=== PATIENT | female | born 1965 | race African-American/Black ===

== ENCOUNTER → 2018-06-30 | Outpatient (CLI) | payer MEDICARE, MEDICAID ==
[~2018-06-30] MED LIST: BENZONATATE200 MG PO; CIPRO500 MG PO; CIPROFLOXIN HC2.5 M1 PO; COLACE100 MG PO; LEVAQUIN 500 M500 M4 PO; METAMUCIL PAC1 UDPKT PO; MIRALAX17 GM PO; NORCO 5-325 TA1 EACH PO; OXYCONTIN10 M1 PO; PAXIL10 MG; PEPCID40 MG PO; PRAVACHOL20 MG PO; PRAVASTATIN SOD20 MG PO; PREDNISONE 10 M10 MG PO; PREMARIN VAGI42.5 G1 VAG; TESSALON PERLE100 MG; TESSALON PERLE100 MG PO; VENTOLIN HFA 1818 GM INH; ZOFRAN ODT4 MG PO
== END ==
LOC: M.RAD 06-16 12:37 → M.ULTRA 09:18 → M.RAD 09:20 → M.ULTRA 09:30 → M.RAD 10:20
DX: Z12.31 Encounter for screening mammogram for malignant neoplasm of breast (principal); Z13.820 Encounter for screening for osteoporosis; J44.9 Chronic obstructive pulmonary disease, unspecified; K76.0 Fatty (change of) liver, not elsewhere classified; R16.0 Hepatomegaly, not elsewhere classified; R91.8 Other nonspecific abnormal finding of lung field; Z78.0 Asymptomatic menopausal state; Z90.49 Acquired absence of other specified parts of digestive tract

== ENCOUNTER 2019-03-14 19:50 | Inpatient (IN) | payer MEDICARE ==
[~2019-03-14] VITALS: Ht 160 cm; Wt 108.2 kg
[2019-03-14 20:05] VITALS: BP 142/85
[2019-03-14] MEDS ORDERED: CHROMIUM PIC1000 MCG PO (20:11)
[2019-03-14] MEDS ORDERED: LIPITOR20 MG PO (20:11)
[2019-03-14] MEDS ORDERED: NORVASC 2.5 MG2.5 M1 PO (20:12)
[2019-03-14] MEDS ORDERED: OMEPRAZOLE 20 M20 M1 PO (20:12)
[2019-03-14 20:53] LABS: ABSOLUTE BASOPHILS 0.1 thou/uL (0.0-0.2); ABSOLUTE EOSINOPHILS 0.1 thou/uL (0.0-0.7); ABSOLUTE LYMPHOCYTES 2.2 thou/uL (0.8-5.3); ABSOLUTE MONOCYTES 0.6 thou/uL (0.0-1.2); ABSOLUTE NEUTROPHILS 7.9 thou/uL (1.6-8.1); BASOPHILS 0.6 %; EOSINOPHILS 0.5 %; HEMATOCRIT 45.5 % (37.0-47.0); HEMOGLOBIN 15.4 gm/dL (12.0-15.0); LYMPHOCYTES 20.6 %; MCH 29.2 pg (26.0-34.0); MCHC 33.8 g/dL (28.0-37.0); MCV 86.3 fL (80.0-100.0); MONOCYTES 5.7 %; MPV 8.4 fl. (7.2-11.1); NUCLEATED RBCS 0 /100WBC; PLATELET COUNT* 235 thou/uL (150-400); POLYS 72.6 %; RBC 5.27 mil/uL (4.20-5.00); RDW-CV 19.3 % (10.5-14.5); WBC 10.9 thou/uL (4.0-11.0)
[2019-03-14 20:53] LABS: URINE BLOOD 2+ (Negative); URINE CLARITY CLEAR; URINE COLOR YELLOW; URINE GLUCOSE-RANDOM NEGATIVE (Negative); URINE KETONES TRACE (Negative); URINE LEUKOCYTES-REFLEX NEGATIVE (Negative); URINE NITRITE-REFLEX NEGATIVE (Negative); URINE PROTEIN TRACE (Negative); URINE SPECIFIC GRAVITY >= 1.030 (1.005-1.030); URINE UROBILINOGEN 0.2 E.U./dl (0.2-1.0)
[2019-03-14 20:59] LABS: URINE BILIRUBIN 1+ (Negative)
[2019-03-14 21:00] LABS: ICTOTEST (BILI CONFIRMATORY) Positive (Negative)
[2019-03-14 21:10] LABS: CALCIUM 8.2 mg/dL (8.5-10.1); CREATININE 0.7 mg/dL (0.6-1.3); POTASSIUM 3.3 mmol/L (3.5-5.1)
[2019-03-14 21:14] LABS: ALBUMIN 3.3 g/dL (3.4-5.0); TOTAL BILIRUBIN 0.9 mg/dL (<0.1-1.0); TOTAL PROTEIN 7.1 g/dL (6.4-8.2)
[2019-03-14 21:19] LABS: COARSE GRANULAR CASTS 0-3 Few /LPF (None Seen); SQUAMOUS >10 Many /LPF (0-3)
[2019-03-14 21:21] LABS: CRYSTALS None Seen /LPF (None Seen); URINE RBC 0-2 Rare /HPF (0-2); URINE WBC-REFLEX 0-5 Rare /HPF (0-5)
[2019-03-14] MEDS ORDERED: PHENERGAN 25 MG25 M1 PO (22:47)
[2019-03-14] MEDS ORDERED: OXYCODONE HCL 55 MG PO (22:47)
--- NOTE | 2019-03-15 00:50 | NUR ---
RECEIVED CALL AT NURSE'S STATION FROM MARISA MILLS, WHO STATES SHE IS CO-WORKER WITH PT AND WOULD LIKE TO KNOW WHAT IS GOING ON WITH PATIENT, MARISA INFORMED THAT WE WILL NOT GIVE OUT PATIENT'S INFORMATION, BUT I WILL LET THE PATIENT KNOW THAT MARISA CALLED. PATIENT WAS INFORMED AND STATES "DON'T TELL HER ANYTHING THAT IS GOING ON". PT INFORMED THAT NO INFORMATION WAS GIVEN AND THAT MARISA WAS TOLD THAT PATIENT WOULD BE INFORMED THAT SHE CALLED. PT STATES "OKAY, THAT'S GOOD".
[2019-03-15 01:10] VITALS: BP 130/74
[2019-03-15 02:00] VITALS: BP 141/66
--- NOTE | 2019-03-15 07:35 | NUR ---
RECEIVED REPORT FROM UNDERGROUND BOLTING MACHINE OPERATOR LEANNA AT 0108. PT ARRIVED TO ROOM VIA BED AT 0120. PT AAOX4. ORIENTED TO ROOM AND CALL LIGHT. NURSING ASSESSMENT COMPLETED. NEGATIVE SEPSIS SCREENING. IV FLUIDS INFUSING. PRN PAIN MEDICATION ADMINISTERED X1 THIS SHIFT. HOURLY ROUNDING COMPLETED. CALL LIGHT WITHIN REACH.
[2019-03-15 08:00] VITALS: BP 141/59
[2019-03-15 12:55] LABS: CALCIUM 7.7 mg/dL (8.5-10.1); CREATININE 0.7 mg/dL (0.6-1.3); MAGNESIUM 1.5 mg/dL (1.8-2.4); POTASSIUM 3.4 mmol/L (3.5-5.1)
[2019-03-15 16:00] VITALS: BP 136/60
--- NOTE | 2019-03-15 18:44 | NUR ---
ASSUMED PT CARE AT 0700, PT A&O X4, UP AD STELLA, RA, VSSW, FULL ASSESSMENT CHARTED. PT STATES UNABLE TO EAT, C/O NAUSEA DISPITE ANTI NAUSEA MEDICATION OFFERED. PT DID LATER REQUEST SEVERAL PACKAGES OF FILEMON CRACKERS, EDUCATED ON CLEAR LIQUID DIET ORDER. PT REMAINS ON MED SURG STATUS, HOURLY ROUNDING COMPLETED.
[2019-03-15 20:00] VITALS: BP 135/53
[2019-03-16] VITALS: BP 120/57
--- NOTE | 2019-03-16 05:32 | NUR ---
PT A&O, VSS. PT ON 2L OF O2 BY NC WITH BUBBLER, CONTINUOUS CAPNO IN PLACE. MEDS GIVEN ORDERED. MORPHINE GIVEN X1 PER PT REQUEST. TOLERATING CLEAR LIQUIDS, NO C/O NAUSEA THIS SHIFT. WILL CONTINUE TO MONITOR.
[2019-03-16 05:45] LABS: HEMATOCRIT 40.7 % (37.0-47.0); MCH 28.6 pg (26.0-34.0); MCHC 32.4 g/dL (28.0-37.0); MCV 88.5 fL (80.0-100.0); MPV 8.3 fl. (7.2-11.1); RBC 4.6 mil/uL (4.20-5.00); RDW-CV 19.4 % (10.5-14.5); WBC 7.7 thou/uL (4.0-11.0)
[2019-03-16 05:48] LABS: HEMOGLOBIN 13.2 gm/dL (12.0-15.0)
[2019-03-16 06:11] LABS: ALBUMIN 2.8 g/dL (3.4-5.0); CALCIUM 8.1 mg/dL (8.5-10.1); CREATININE 0.7 mg/dL (0.6-1.3); MAGNESIUM 1.6 mg/dL (1.8-2.4); POTASSIUM 3.4 mmol/L (3.5-5.1); TOTAL BILIRUBIN 0.4 mg/dL (<0.1-1.0); TOTAL PROTEIN 6.6 g/dL (6.4-8.2)
[2019-03-16 08:00] VITALS: BP 143/60
--- NOTE | 2019-03-16 14:13 | EKG ---
[place] [address] ELECTROCARDIOGRAM REPORT Name: AMANDA SAUNDERS Room: [address] ADM IN ..#: [id number] Admission: 03/14/19 Attend Phys: Shailesh Murray, Discharge: Date of : 61 Report #: [id number] THIS REPORT FOR: //name// [facility] ED Test Date: 2019-03-14 Test Time: 20:10:01 Pat Name: AMANDA SAUNDERS Department: Room: [address] Gender: F Toaster Operator: : 1965 Requested By: Charley Ennis Order Number: [id number] Adia MD: Rod Martin Measurements Intervals [place] Rate: 99 P: 69 [place]: 174 QRS: 76 QRSD: 88 T: 35 QT: 348 QTc: 447 Interpretive Statements Sinus rhythm Compared to ECG 05/03/2014 19:21:57 Sinus tachycardia no longer present Electronically Signed On 03-16-2019 14:13:11 R[employer]ARY [employer]EDER by Rod Martin [email or web address] <ELECTRONICALLY SIGNED> By: Rod Martin MD, [facility] 03/16/19 1413 09 09 Rod Martin MD, [facility]ACC /EPI
--- NOTE | 2019-03-16 15:03 | NUR ---
Pt is A&O. Resides at home alone. Independent and active. Pt states that she has home o2 that she uses PRN. Hx of HH several years ago, does not remember the name of the agency. No hx of SNF. Goal is home at tx, no needs anticipated.
[2019-03-16 16:25] VITALS: BP 126/59
--- NOTE | 2019-03-16 16:45 | NUR ---
VSS, PT MED SURG STATUS, A&OX4, UP AD STELLA, HOURLY ROUNDING PERFORMED, POSSESSIONS AND CALL LIGHT WITHIN REACH. PT DIET ADVANCED TO FULL REG DIET
[2019-03-16 20:10] VITALS: BP 139/59
[2019-03-17 04:00] VITALS: BP 143/59
--- NOTE | 2019-03-17 07:25 | NUR ---
VSS. SEE MAR. SEE CHARTING. HOURLY ROUNDING FOR SAFETY.
[2019-03-17 08:00] VITALS: BP 138/68
[2019-03-17 12:27] VITALS: BP 137/64
[2019-03-17 16:28] VITALS: BP 117/60
--- NOTE | 2019-03-17 17:50 | NUR ---
VSS, A&OX4, MED SURG STATUS, ABD PAIN, ADVANCED DIET TO REG, PT UP AD STELLA, POSSESSIONS AND CALL LIGHT WITHIN REACH. HOURLY ROUNDING PERFORMED.
[2019-03-17 19:50] VITALS: BP 139/54
[2019-03-18 04:29] VITALS: BP 150/72
[2019-03-18 08:00] VITALS: BP 145/81
[2019-03-18 09:00] VITALS: BP 145/81
[2019-03-18] MEDS ORDERED: NORCO 5-325 TA1 EAC1 PO (10:22)
[2019-03-18] MEDS ORDERED: PHENERGAN 25 MG25 M1 PO (10:22)
[2019-03-18 12:51] VITALS: BP 145/81
[2019-03-18 13:03] VITALS: BP 134/77
== END 2019-03-18 13:15 | disposition home or self-care (01) | DRG 439 ==
LOC: M.ERS 19:50 → M.2W 23:57 → M.TBA-ER 23:57 → M.2W 03-15 01:05
PROVIDERS: Internal Medicine; Personal Emergency Response Attendant; ADMIT Family Medicine
DX: K85.90 Acute pancreatitis without necrosis or infection, unspecified (principal); J44.1 Chronic obstructive pulmonary disease with (acute) exacerbation; I42.9 Cardiomyopathy, unspecified; Z68.41 Body mass index [BMI] 40.0-44.9, adult; E44.1 Mild protein-calorie malnutrition; I50.32 Chronic diastolic (congestive) heart failure; F11.20 Opioid dependence, uncomplicated; E78.00 Pure hypercholesterolemia, unspecified; K86.1 Other chronic pancreatitis; E66.01 Morbid (severe) obesity due to excess calories; K75.81 Nonalcoholic steatohepatitis (NASH); K57.90 Diverticulosis of intestine, part unspecified, without perforation or abscess without bleeding; E87.6 Hypokalemia; I11.0 Hypertensive heart disease with heart failure; G89.29 Other chronic pain; Z90.710 Acquired absence of both cervix and uterus; Z79.899 Other long term (current) drug therapy; Z90.49 Acquired absence of other specified parts of digestive tract

== ENCOUNTER 2019-08-26 14:48 | Inpatient (IN) | payer OTHER ==
[~2019-08-26] VITALS: Ht 160 cm; Wt 98.9 kg
--- NOTE | ~2019-08-26 | CON ---
[address] [address] CONSULTATION Name: TIBURCIO SAUNDERSJenae ARMSTRONG Room: [address] IN .R.#: [id number] Admission: 08/26/19 Attend Phys: Abilio Eckert Discharge: Date of : 61 Report #: [id number] THIS REPORT FOR: //name// cc: Rosmery Menezes MD, Katrina MD ~ THIS REPORT FOR: //name// CC: Rosmery Kothari DO DATE OF SERVICE: 08/27/2019 REASON FOR CONSULTATION: Epigastric pain and elevated lipase level. PRIMARY CARE PHYSICIAN: Rosmery Menezes MD. HISTORY OF PRESENT ILLNESS: This is a 53-year-old female who presented to hospital with severe epigastric pain, abdominal distention, nausea and vomiting. The patient was found to have elevated lipase in range of 5000. She also had elevated transaminases. She reports that she occasionally drinks alcohol. She has had a CT of abdomen and pelvis and ultrasound. Both revealed a large fatty liver consistent with fatty liver disease. The patient reports that she has had pancreatitis 1 time in the past back in 2016 when they removed her gallbladder. She denies any lower GI symptoms. PAST MEDICAL HISTORY: Significant for history of COPD, asthma, fatty liver disease, gallbladder disease, status post cholecystectomy in 2016, hypertension, GERD, dyslipidemia, cardiomyopathy, obesity, and hysterectomy. ALLERGIES: No known drug allergy. MEDICATIONS: Please refer to MAR. SOCIAL HISTORY: The patient lives at home, may occasionally have alcoholic beverage. Denies tobaccoism. She has COPD. FAMILY HISTORY: The patient's family members, all live to late 90s or 100. She denies any significant family history. PHYSICAL EXAMINATION: VITAL SIGNS: Reveals blood pressure of 116/62, respirations 20, pulse 67, and temperature 97. LUNGS: [place] [address] CONSULTATION Name: AMANDA SAUNDERS Room: [address]#: [id number] Admission: 08/26/19 Attend Phys: Abilio Eckert Discharge: Date of : 61 Report #: [id number] CARDIOVASCULAR: Regular. ABDOMEN: Large, soft, nontender, and nondistended. Bowel sounds are positive. LABORATORY DATA: Labs reveal sodium of 145, potassium 3.0, BUN is 8, creatinine 0.6, glucose 88, AST is 337, ALT 146, and alkaline phosphatase is 117. Total bilirubin is 1.1. INR is 1.1. WBC is 5.7 with hemoglobin of 13.5 and platelet of 188. IMAGING: As discussed above. ASSESSMENT AND PLAN: The patient with acute pancreatitis and fatty liver disease, who has elevated transaminases and alkaline phosphatase. We will check triglyceride levels and continue hydrating her at rate of 250 mL an hour and check lipase tomorrow. If her lipase is significantly better tomorrow, we will start liquid diet. The patient is agreeable with plan. By: [id number] Clement MD /nt
[~2019-08-26 14:48] MED LIST changes: +CHROMIUM PIC1000 MCG PO; +LIPITOR20 MG PO; +NORCO 5-325 TA1 EAC1 PO; +NORVASC 2.5 MG2.5 M1 PO; +OMEPRAZOLE 20 M20 M1 PO; +OXYCODONE HCL 55 MG PO; +PHENERGAN 25 MG25 M1 PO
[2019-08-26 15:02] VITALS: BP 110/86
[2019-08-26] MEDS ORDERED: TUSNEL CAPSULE1 EACH PO (15:06)
[2019-08-26 15:19] LABS: URINE BILIRUBIN NEGATIVE (Negative); URINE BLOOD 1+ (Negative); URINE CLARITY CLEAR; URINE COLOR YELLOW; URINE GLUCOSE-RANDOM NEGATIVE (Negative); URINE KETONES NEGATIVE (Negative); URINE LEUKOCYTES-REFLEX NEGATIVE (Negative); URINE NITRITE-REFLEX NEGATIVE (Negative); URINE PROTEIN NEGATIVE (Negative); URINE SPECIFIC GRAVITY >= 1.030 (1.005-1.030)
[2019-08-26 15:19] LABS: ABSOLUTE BASOPHILS 0.1 thou/uL (0.0-0.2); ABSOLUTE EOSINOPHILS 0.1 thou/uL (0.0-0.7); ABSOLUTE LYMPHOCYTES 2.2 thou/uL (0.8-5.3); ABSOLUTE MONOCYTES 0.5 thou/uL (0.0-1.2); BASOPHILS 0.9 %; EOSINOPHILS 0.9 %; HEMATOCRIT 46.8 % (37.0-47.0); HEMOGLOBIN 15.5 gm/dL (12.0-15.0); LYMPHOCYTES 28.4 %; MCH 30.3 pg (26.0-34.0); MCHC 33.1 g/dL (28.0-37.0); MCV 91.4 fL (80.0-100.0); MONOCYTES 5.9 %; MPV 8.5 fl. (7.2-11.1); NUCLEATED RBCS 0 /100WBC; PLATELET COUNT* 243 thou/uL (150-400); POLYS 63.9 %; RBC 5.13 mil/uL (4.20-5.00); RDW-CV 20.4 % (10.5-14.5); WBC 7.8 thou/uL (4.0-11.0)
[2019-08-26 15:32] LABS: HYALINE CASTS 0-3 Few /LPF (None Seen); MUCUS 4-6 Moderate strn/LPF (None Seen); SQUAMOUS 4-10 Moderate /LPF (0-3); URINE RBC 0-2 Rare /HPF (0-2); URINE WBC-REFLEX 0-5 Rare /HPF (0-5)
[2019-08-26 15:33] LABS: CALCIUM 7.9 mg/dL (8.5-10.1); CREATININE 0.8 mg/dL (0.6-1.3); POTASSIUM 3.3 mmol/L (3.5-5.1)
[2019-08-26 15:33] LABS: CRYSTALS None Seen /LPF (None Seen)
[2019-08-26 15:38] LABS: ALBUMIN 2.9 g/dL (3.4-5.0); TOTAL BILIRUBIN 0.8 mg/dL (<0.1-1.0)
[2019-08-26 16:38] LABS: APTT 23.6 Seconds (25.0-31.3); INR 1.1; PROTIME 11.4 Seconds (9.20-11.50)
[2019-08-26 16:40] LABS: AMP/METHAMP Negative (Negative); BARBITURATES Negative (Negative); BENZODIAZEPINES Negative (Negative); COCAINE Negative (Negative); METHADONE Negative (Negative); OPIATES Negative (Negative); PCP Negative (Negative); THC Negative (Negative)
[2019-08-26 17:37] VITALS: BP 110/86
[2019-08-26 18:10] VITALS: BP 128/67
[2019-08-27] VITALS: BP 126/53
[2019-08-27 07:25] LABS: ABSOLUTE EOSINOPHILS 0.1 thou/uL (0.0-0.7); ABSOLUTE LYMPHOCYTES 1.7 thou/uL (0.8-5.3); ABSOLUTE MONOCYTES 0.4 thou/uL (0.0-1.2); ABSOLUTE NEUTROPHILS 3.5 thou/uL (1.6-8.1); BASOPHILS 0.8 %; EOSINOPHILS 2.5 %; HEMATOCRIT 42.2 % (37.0-47.0); LYMPHOCYTES 29.4 %; MCH 30.1 pg (26.0-34.0); MCHC 32.1 g/dL (28.0-37.0); MCV 93.8 fL (80.0-100.0); MONOCYTES 6.2 %; MPV 8.3 fl. (7.2-11.1); NUCLEATED RBCS 0 /100WBC; PLATELET COUNT* 188 thou/uL (150-400); POLYS 61.1 %; RBC 4.49 mil/uL (4.20-5.00); RDW-CV 20.9 % (10.5-14.5); WBC 5.7 thou/uL (4.0-11.0)
[2019-08-27 07:26] LABS: HEMOGLOBIN 13.5 gm/dL (12.0-15.0)
[2019-08-27 07:34] LABS: ALBUMIN 2.6 g/dL (3.4-5.0); CALCIUM 6.9 mg/dL (8.5-10.1); CREATININE 0.6 mg/dL (0.6-1.3); TOTAL BILIRUBIN 1.1 mg/dL (<0.1-1.0); TOTAL PROTEIN 6.2 g/dL (6.4-8.2)
[2019-08-27 08:00] VITALS: BP 116/62
--- NOTE | 2019-08-27 10:54 | EKG ---
[place] [address] ELECTROCARDIOGRAM REPORT Name: AMANDA SAUNDERS Room: [address] ADM IN ..#: [id number] Admission: 08/26/19 Attend Phys: Tramaine Kothari Discharge: Date of : 61 Date of Service: 08/26/19 1624 Report #: [id number] THIS REPORT FOR: //name// [facility] ED Test Date: 2019-08-26 Test Time: 16:24:10 Pat Name: AMANDA SAUNDERS Department: Room: [facility] Gender: F Qa Lead: BRENDEN : 1965 Requested By: Meera Alicea Order Number: [id number] MD: Rod Martin Measurements Intervals [place] Rate: 77 P: -45 [place]: 187 QRS: 49 QRSD: 92 T: 18 QT: 381 QTc: 432 Interpretive Statements Sinus or ectopic atrial rhythm Compared to ECG 03/14/2019 20:10:01 rate has slowed Electronically Signed On 08-27-2019 10:53:51 CDT by Rod Martin [email or web address] <ELECTRONICALLY SIGNED> By: Rod Martin MD, [facility] 08/27/19 1053 1624 1624 Rod Martin MD, [facility] /EPI
[2019-08-27 20:00] VITALS: BP 131/66
[2019-08-28 04:06] LABS: HEPATITIS B SURFACE AG Negative (Negative)
[2019-08-28 06:02] LABS: ABSOLUTE LYMPHOCYTES 0.8 thou/uL (0.8-5.3); ABSOLUTE MONOCYTES 0.4 thou/uL (0.0-1.2); BASOPHILS 0.3 %; EOSINOPHILS 0.1 %; HEMOGLOBIN 12.7 gm/dL (12.0-15.0); LYMPHOCYTES 12.2 %; MCH 30.4 pg (26.0-34.0); MCHC 32.7 g/dL (28.0-37.0); MONOCYTES 6.5 %; MPV 8.2 fl. (7.2-11.1); NUCLEATED RBCS 0 /100WBC; PLATELET COUNT* 167 thou/uL (150-400); POLYS 80.9 %; RBC 4.19 mil/uL (4.20-5.00); RDW-CV 20.6 % (10.5-14.5); WBC 6.2 thou/uL (4.0-11.0)
[2019-08-28 06:15] LABS: ALBUMIN 2.5 g/dL (3.4-5.0); CALCIUM 6.9 mg/dL (8.5-10.1); CREATININE 0.6 mg/dL (0.6-1.3); POTASSIUM 3.7 mmol/L (3.5-5.1); TOTAL BILIRUBIN 0.5 mg/dL (<0.1-1.0); TOTAL PROTEIN 6.2 g/dL (6.4-8.2)
[2019-08-28 07:20] LABS: ANISOCYTOSIS 2+; PLATELET ESTIMATE ADEQUATE
[2019-08-28 08:10] VITALS: BP 124/56
[2019-08-28 20:12] VITALS: BP 137/63
[2019-08-29 07:45] VITALS: BP 113/53
[2019-08-29] MEDS ORDERED: PREDNISONE 10 M10 MG PO (09:43)
[2019-08-29] MEDS ORDERED: PERCOCET 10-321 EACH PO (09:43)
[2019-08-29 10:06] LABS: ALBUMIN 2.8 g/dL (3.4-5.0); CALCIUM 7.4 mg/dL (8.5-10.1); CREATININE 0.5 mg/dL (0.6-1.3); POTASSIUM 4.4 mmol/L (3.5-5.1); TOTAL BILIRUBIN 0.4 mg/dL (<0.1-1.0); TOTAL PROTEIN 6.9 g/dL (6.4-8.2)
[2019-08-29] MEDS ORDERED: ONDANSETRON HCL4 M2 PO (10:39)
[2019-08-29 12:38] VITALS: BP 113/53
[2019-08-29 13:02] VITALS: BP 113/53
== END 2019-08-29 13:04 | disposition home or self-care (01) | DRG 439 ==
LOC: M.ERS 14:48 → M.TBA-ER 16:25 → M.ORTHSURG 16:25
PROVIDERS: Physician Assistant; ADMIT Internal Medicine; ATTEND Internal Medicine
DX: K85.90 Acute pancreatitis without necrosis or infection, unspecified (principal); B17.9 Acute viral hepatitis, unspecified; E44.1 Mild protein-calorie malnutrition; I43 Cardiomyopathy in diseases classified elsewhere; K76.0 Fatty (change of) liver, not elsewhere classified; J44.9 Chronic obstructive pulmonary disease, unspecified; K21.9 Gastro-esophageal reflux disease without esophagitis; E78.5 Hyperlipidemia, unspecified; E78.00 Pure hypercholesterolemia, unspecified; I10 Essential (primary) hypertension; E66.01 Morbid (severe) obesity due to excess calories; Z68.38 Body mass index [BMI] 38.0-38.9, adult; Z98.891 History of uterine scar from previous surgery; Z79.899 Other long term (current) drug therapy; Z90.710 Acquired absence of both cervix and uterus; Z90.49 Acquired absence of other specified parts of digestive tract

== ENCOUNTER 2019-08-29 16:20 | Inpatient (IN) | payer OTHER ==
[~2019-08-29] VITALS: Ht 160 cm; Wt 101.4 kg
[~2019-08-29 16:20] MED LIST changes: +ONDANSETRON HCL4 M2 PO; +PERCOCET 10-321 EACH PO; +TUSNEL CAPSULE1 EACH PO
[2019-08-29 16:40] VITALS: BP 172/86
[2019-08-29 18:54] VITALS: BP 154/75
[2019-08-29 18:55] VITALS: BP 151/82
[2019-08-29 20:54] LABS: CALCIUM 8.5 mg/dL (8.5-10.1); CREATININE 0.6 mg/dL (0.6-1.3); MAGNESIUM 1.7 mg/dL (1.8-2.4); POTASSIUM 3.6 mmol/L (3.5-5.1)
--- NOTE | 2019-08-30 04:27 | NUR ---
PT A&OX4, ON ROOM AIR, VSS, PT UP AD STELLA, PT NPO ORDERED. IV PAIN MEDS REQUESTED AND GIVEN ORDERED. IV FLUIDS INFUSING ORDERED. MAGNESIUM REPLACED PER PROTOCOL. HOURLY ROUNDINGS COMPLETE, WILL CONTINUE WITH PLAN OF CARE.
[2019-08-30 08:00] VITALS: BP 148/88
[2019-08-30 09:03] LABS: ALBUMIN 2.8 g/dL (3.4-5.0); CALCIUM 8.4 mg/dL (8.5-10.1); CREATININE 0.5 mg/dL (0.6-1.3); POTASSIUM 3.6 mmol/L (3.5-5.1); TOTAL BILIRUBIN 0.5 mg/dL (<0.1-1.0)
[2019-08-30 15:38] VITALS: BP 156/67
--- NOTE | 2019-08-30 18:32 | NUR ---
ASSUMED CARE AT 0730. ALERT ORIENTED PLEASANT COOPERATIVE. HX OF PANCREATITIS. UP AD STELLA AMBULATING TO BR TO VOID IV FLUIDS ARE INFUSING AT 250CCS PER HR. MEDICATED X 3 TODAY FOR ABDOMINAL PAIN WITH DILAUDID IV. NPO BUT DID TAKE HER BP MED WHEN ENCOURAGED TO DO SO BY R.N. UP AMBULATING IN HALLS ALSO X 2.
[2019-08-30 20:52] VITALS: BP 162/63
--- NOTE | 2019-08-31 05:31 | NUR ---
PT A&OX4, ON ROOM AIR, VSS, PT NPO, PT UP AD STELLA. PAIN MEDS REQUESTED AND GIVEN ORDERED. PT C/O RASH/ITCHING, BENEDRYL GIVEN ORDERED. IV FLUIDS INFUSING ORDERED. ASSESSMENTS AND HOURLY ROUNDINGS COMPLETE. WILL CONTINUE TO MONITOR.
[2019-08-31 07:47] VITALS: BP 149/76
[2019-08-31 11:24] LABS: ABSOLUTE EOSINOPHILS 0.2 thou/uL (0.0-0.7); ABSOLUTE LYMPHOCYTES 1.4 thou/uL (0.8-5.3); ABSOLUTE MONOCYTES 0.6 thou/uL (0.0-1.2); ABSOLUTE NEUTROPHILS 4.6 thou/uL (1.6-8.1); BASOPHILS 0.4 %; EOSINOPHILS 3.3 %; HEMATOCRIT 45.2 % (37.0-47.0); HEMOGLOBIN 14.6 gm/dL (12.0-15.0); LYMPHOCYTES 21.1 %; MCH 30.5 pg (26.0-34.0); MCHC 32.3 g/dL (28.0-37.0); MCV 94.4 fL (80.0-100.0); MONOCYTES 8.3 %; MPV 9.7 fl. (7.2-11.1); NUCLEATED RBCS 0 /100WBC; PLATELET COUNT* 214 thou/uL (150-400); POLYS 66.9 %; RBC 4.79 mil/uL (4.20-5.00); WBC 6.8 thou/uL (4.0-11.0)
--- NOTE | 2019-08-31 18:16 | NUR ---
Pt AOx4. Up ad jeremy in room. C/o pain 7/10 most of the day, receiving IV dilaudid to manage. Patient conitnue to receive IVF at 250/hr clarified with MD to keep rate at current. PRn benadryl given for c/o itching and advanced diet to heart healthy and tolerating well. Hourly rounding complete. Will continue to monitor
[2019-08-31 22:20] VITALS: BP 145/73
--- NOTE | 2019-09-01 06:24 | NUR ---
PATIENT HAS SLEPT OFF AND ON DURING THE NIGHT. VSS ON RA. MEDICATIONS GIVEN ORDERED AND CHARTED. PATIENT IS UP AD-STELLA. NO NAUSEA AND VOMITING. IV IN RIGHT AC-LR @ 250ML/HR. PATIENT INSTRUCTED TO USE CALL LIGHT WHEN NEEDING ASSISTANCE. HOURLY ROUNDS MADE. WILL CONTINUE WITH PLAN OF CARE AND NURSING TO MONITOR.
[2019-09-01 07:30] VITALS: BP 165/73
[2019-09-01 09:41] LABS: ALBUMIN 2.9 g/dL (3.4-5.0); CALCIUM 8.5 mg/dL (8.5-10.1); CREATININE 0.7 mg/dL (0.6-1.3); TOTAL BILIRUBIN 0.5 mg/dL (<0.1-1.0); TOTAL PROTEIN 7.2 g/dL (6.4-8.2)
[2019-09-01 09:42] LABS: POTASSIUM 2.9 mmol/L (3.5-5.1)
[2019-09-01 14:18] VITALS: BP 165/73
[2019-09-01 16:00] VITALS: BP 158/67
--- NOTE | 2019-09-01 17:10 | NUR ---
PT.PLANS ON DISCHARGING HOME TOMORROW. [facility]. SHE WOULD LIKE A LIST OF PCPS THAT [facility] AND THAT TAKE HER INS. TOLD HER THE BEST WAY WOULD BE FOR HER TO CALL [employer] ON THE BACK OF HER INS. TO ASK THEM ABOUT PCPS THAT CONTRACT IWTH HER INS. AND GO TO THAT HOSPITAL. SHE SAID SHE WOULD .
--- NOTE | 2019-09-01 18:15 | NUR ---
PT REMAINED ALERT AND ORIENTED. PT RESTING IN BED. FALL RISK PRECAUTIONS IN PLACE. HOURLY ROUNDING COMPLETED. WILL CONTINUE TO MONITOR.
[2019-09-01 19:58] VITALS: BP 153/60
[2019-09-01 23:55] VITALS: BP 151/72
--- NOTE | 2019-09-02 04:40 | NUR ---
PT A&OX4, ON ROOM AIR, VSS, PT UP AD STELLA, IV FLUIDS INFUSING ORDERED, PAIN MEDS REQUESTED AND GIVEN ORDERED. ASSESSMENTS AND HOURLY ROUNDINGS COMPLETED, WILL CONTINUE WITH PLAN OF CARE.
[2019-09-02 05:36] LABS: ALBUMIN 2.7 g/dL (3.4-5.0); CALCIUM 8.8 mg/dL (8.5-10.1); CREATININE 0.6 mg/dL (0.6-1.3); TOTAL BILIRUBIN 0.3 mg/dL (<0.1-1.0); TOTAL PROTEIN 6.8 g/dL (6.4-8.2)
[2019-09-02 05:39] LABS: POTASSIUM 3.4 mmol/L (3.5-5.1)
[2019-09-02 07:24] VITALS: BP 158/69
[2019-09-02 07:35] VITALS: BP 165/73
[2019-09-02 08:42] VITALS: BP 165/73
--- NOTE | 2019-09-02 08:42 | NUR ---
PT REMAINED ALERT. PT WOULD NOT WAIT FOR DISCHARGE ORDERS, DID SAY PT COULD GO HOME TODAY. PT LEFT IN A HURRY, WOULD NOT LISTEN TO DISCHARGE INFORMATION AND INTERRUPTED ME FREQUENTLY. PT LEFT VIA WHEELCHAIR WITH NURSING STAFF TO HOME.
== END 2019-09-02 08:43 | disposition home or self-care (01) | DRG 439 ==
LOC: M.ERS 16:20 → M.ORTHSURG 18:18 → M.TBA-ER 18:18 → M.ORTHSURG 18:53
PROVIDERS: ADMIT Internal Medicine; ATTEND Internal Medicine
DX: K85.20 Alcohol induced acute pancreatitis without necrosis or infection (principal); E44.0 Moderate protein-calorie malnutrition; I43 Cardiomyopathy in diseases classified elsewhere; J45.901 Unspecified asthma with (acute) exacerbation; E66.01 Morbid (severe) obesity due to excess calories; J44.9 Chronic obstructive pulmonary disease, unspecified; K86.1 Other chronic pancreatitis; R21 Rash and other nonspecific skin eruption; I11.9 Hypertensive heart disease without heart failure; E78.00 Pure hypercholesterolemia, unspecified; Z90.710 Acquired absence of both cervix and uterus; Z90.49 Acquired absence of other specified parts of digestive tract; Z68.39 Body mass index [BMI] 39.0-39.9, adult; Z79.899 Other long term (current) drug therapy